=== PATIENT | female | born 1950 | race Caucasian/White ===

== ENCOUNTER → 2020-10-14 14:25 | Outpatient (CLI) | payer OTHER, SELFPAY ==
[2020-10-14 15:30] LABS: COVID19 -Nasal RAPID Negative (Negative)
== END ==
PROVIDERS: Visit Provider Physician Assistant
DX: Z11.59 Encounter for screening for other viral diseases (principal)
CPT/HCPCS: 87635

== ENCOUNTER 2020-10-16 08:39 | Day surgery (SDC) | payer OTHER, SELFPAY ==
--- NOTE | 2020-10-16 | PATH_ITS ---
[facility] Accession Number: [id number] . 01 Material submitted: . PART A: duodenum - DUODENUM PART B: gastrointestinal site - STOMACH . 01 Clinical history: . SDC A: RULE OUT CELIAC FOR ANEMIA . 02 Diagnosis: A. Duodenum, Biopsy: Small bowel mucosa with no diagnostic abnormality. Negative for active inflammation, features of sprue, dysplasia, or malignancy. . B. Stomach, Biopsy: Gastric body mucosa with no diagnostic abnormality. No evidence of Helicobacter organisms on H/E stain. Negative for intestinal metaplasia. Negative for dysplasia and malignancy. MRV 10/18/2020 1131 Local . 02 Electronically signed: . Reji Olmedo MD, PhD, Pathologist NPI- [id number] . 01 Gross description: . Part A: DUODENUM: Received in formalin are 2 fragment(s) of garcia, soft tissue measuring 0.3 x 0.3 x 0.2 cm to 0.2 x 0.2 x 0.2 cm submitted entirely in 1 cassette(s) Part B: STOMACH: Received in formalin is 1 fragment(s) of garcia, soft tissue measuring 0.3 x 0.3 x 0.2 cm submitted entirely in 1 cassette(s) /QBJ 10/17/2020 0633 Local . 02 Pathologist provided ICD-10: D50.0 . 02 CPT . 423379, [id number] Performed at: 01 [facility] [address] [facility], [place], [place] [id number] MD Hieu Fleming MD Phone: [phone] Performed at: 02 [facility] [address] , [place], [place] [id number] MD Trang Arias MD Phone: [phone]
[2020-10-16 09:11] VITALS: BP 134/78; PULSE 83; RESP 16; TEMP 36.8; O2SAT 96; BMI 35.9
[2020-10-16] MEDS: SODIUM CHLORIDE 0.9% 1,000 ML 100 ML IV (09:11)
--- NOTE | 2020-10-16 09:11 | PM.PREOP ---
Pre-operative Note COVID-19 COVID-19 status: Negative Interval Note History & Physical reviewed/Exam performed by Physician: Yes Changes to H&P: No ASA Class (for procedural sedation): II
--- NOTE | 2020-10-16 09:12 | P.OP.ENDO_ITS ---
Operative Date/Time/Diagnoses Date of procedure: 10/16/20 Pre-op diagnosis: See indication and findings Procedure & Clinicians Study performed: EGD and colonoscopy Same procedure as scheduled: Yes Indications: Microcytic anemia and abnormal CT scan of the abdomen Surgeon: Denise Solano Procedure Notes Procedure in detail: After informed consent was obtained the patient was placed in the left lateral decubitus position. The video upper scope was placed through the oropharynx and with the patient's help swelled into the esophagus. The esophagus stomach and duodenum were carefully examined. On withdrawal retroflexed view the GE junction was performed. The scope was removed. The pat ient tolerated procedure well. The patient was then turned and the colonoscope substituted which was passed through the anus up to the cecum. Preparation was good. On slow withdrawal mucosa was carefully examined. The scope was removed. The patient tolerated procedure well. Blood loss none Complications none Sedation Total sedation time Versed Findings EGD 1. Normal esophagus to squamocolumnar junction at 36 cm 2. Large hiatal hernia 7-8 cm in size without evidence for Martin lesions 3. Striped erythema in the remainder of the stomach biopsies taken to rule out Helicobacter 4. Normal duodenal bulb and sweep biopsies taken to rule out celiac Colonoscopy 1. Scattered small sigmoid diverticula but with a rather adhesed segment. No evidence for inflammation. 2. Otherwise negative colonoscopy to cecum We will merely await biopsies. Follow-up colonoscopy will be in 10 years. Other than her large hiatal hernia I see no reason for a anemia. We will recheck a CBC and iron studies today.
[2020-10-16] MEDS: fentaNYL 250 MCG/5 ML INJ IV (10:02)
[2020-10-16] MEDS: MIDAZOLAM 5 MG/5 ML VIAL IV (10:14)
[2020-10-16 10:19] VITALS: BP 111/76; PULSE 100; RESP 20; TEMP 36.7; O2SAT 91
[2020-10-16 10:24] VITALS: BP 133/77; PULSE 73; RESP 16; O2SAT 96
[2020-10-16 10:29] VITALS: BP 129/71; PULSE 84; RESP 18; O2SAT 97
[2020-10-16 10:50] VITALS: BP 136/67; PULSE 74; RESP 16; TEMP 36.6; O2SAT 95
--- NOTE | 2020-10-16 10:52 | SUR.PHASEII ---
Pt made aware, d/c instructions discussed pt voiced an understanding. Reported off to NICCI Palencia. Verbal order for labs verified with Dr. Solano, lab called to draw.
[2020-10-16 11:11] VITALS: BP 121/79; PULSE 68; RESP 16; TEMP 36.2; O2SAT 96
[2020-10-16 11:14] LABS: Add Manual Diff / Slide Review NO; Basophils Absolute Auto 100 /uL (0-100); Basophils Percent Auto 1.3 % (0-2); Eosinophils Absolute Auto 100 /uL (0-450); Eosinophils Percent Auto 1.9 % (2-4); Hematocrit 36.4 % (36-46); Hemoglobin 11.7 g/dL (12.0-16.0); Lymphocytes Absolute Auto 1600 /uL (1100-4500); Lymphocytes Percent Auto 33.2 % (25-40); Mean Corpuscular HGB Conc 32.1 % (30-36); Mean Corpuscular Hemoglobin 25.8 PG (26-34); Mean Corpuscular Volume 80.2 fL (80-100); Monocytes Absolute Auto 500 /uL (0-900); Monocytes Percent Auto 10.1 % (3-14); Neutrophils Absolute Auto 2500 /uL (1500-7000); Neutrophils Percent Auto 53.5 % (50-75); Platelet Count 285 X10^3/uL (150-400); Red Blood Cell Count 4.54 X10^6/uL (4.0-5.2); Red Cell Distribution Width 26.9 % (11.6-14.8); White Blood Cell Count 4.7 X10^3/uL (4.5-11.0)
[2020-10-16 11:34] LABS: Anisocytosis 3+; Hypochromasia 2+; Platelet Estimate Adequate on smear; Poikilocytosis 2+
[2020-10-16 11:35] LABS: Iron 194 ug/dL (37-170)
[2020-10-16 11:36] LABS: HEMOLYSIS 52 (0-50)
[2020-10-16 11:45] LABS: Percent Iron Saturation 52 % (15-50); Total Iron Binding Capacity 374 ug/dL (265-497); Transferrin 283 mg/dL (206-381)
== END 2020-10-16 11:20 | disposition home or self-care (01) ==
PROVIDERS: PCP Physician Assistant Medical; Referring Provider Internal Medicine Gastroenterology; Visit Provider Internal Medicine Gastroenterology
PROC: 0DJ08ZZ Inspection of Upper Intestinal Tract, Via Natural or Artificial Opening Endoscopic (ICD-10-PCS; CPT 43235; principal; 2020-10-16 10:00)
PROC: 0DJD8ZZ Inspection of Lower Intestinal Tract, Via Natural or Artificial Opening Endoscopic (ICD-10-PCS; CPT 45378; 2020-10-16 10:00)
DX: R93.5 Abnormal findings on diagnostic imaging of other abdominal regions, including retroperitoneum (principal); D50.9 Iron deficiency anemia, unspecified; K44.9 Diaphragmatic hernia without obstruction or gangrene; I10 Essential (primary) hypertension; E78.5 Hyperlipidemia, unspecified; E03.9 Hypothyroidism, unspecified
CPT/HCPCS: 43239; 45378; 36415; 83540; 83550; 85025; J2250; J3010